=== PATIENT | female | born 1960 | race Caucasian/White ===

== ENCOUNTER → 2017-03-29 | Outpatient (CLI) | payer OTHER ==
--- NOTE | ~2017-03-29 | ST ---
Unit #: [id number] #: [id number] Patient: SAMMY COREA [id number] [address] [address] [id number] O MR#: [id number] NAME: SAMMY COREA : 1960 SEX: F STUDY DATE/TIME: 03/29/2017 UNIT: [facility] ROOM: STUDY DESCRIPTION: Stress Nuclear and ECG Attending Physician: Helder Fraser M.D. Referring Physician: Helder Fraser M.D. Primary Care Physician: Roger Ellison M.D. CARDIOLOGY REPORT EXAM Stress nuclear and ECG combined. INDICATIONS Chest pain, inability to breathe, shortness of breath, inability to exercise adequately, hypertension, obesity, former tobacco abuse, asthma for the diagnosis of obstructive coronary artery disease contributing to the chest pain and the dyspnea. SUMMARY Patient received Lexiscan intravenously while at rest as well as technetium 99 Cardiolite, 11.58 and 35.8 mCi at rest and stress, respectively. Appropriate views were obtained. FINDINGS Heart rate increased from 73 to 125 and blood pressure decreased from 189/90 to 168/100. Patient experienced chest pain and shortness of breath after the infusion. There were no ST segment changes either at rest or with stress. Perfusion images demonstrate chest wall and breast attenuation artifacts, slightly more prominent with stress than at rest. Summed stress score is 2. Summed difference score is 1. Planar images demonstrate no significant patient motion either at rest or stress. There is no significant lung uptake, LV or RV enlargement. Breast shadowing is noted. End-diastolic volume is 93 mL, ejection fraction 63%. IMPRESSION 1. Myocardial perfusion scan demonstrates a change in the anteroseptum with stress, which appears to represent tissue attenuation artifact; however, ischemia cannot be entirely ruled out. This would be considered low to medium risk for ischemia. 2. No infarction is present. 3. Normal wall motion with excellent ejection fraction. Dictated by... Urbano Beckman M.D. MIKA/misha Unit #: [id number] #: [id number] Patient: SAMMY COREA TD: 03/30/2017 13:32 JOB #: [id number] CARDIOLOGY REPORT Page 1 of 1 X Urbano Beckman MD CARDIOLOGY REPORT
--- NOTE | ~2017-03-29 | TH ---
Unit #: [id number] #: [id number] Patient: SAMMY COREA [id number] [address] [address] [id number] O MR#: [id number] NAME: SAMMY COREA : 1960 SEX: F STUDY DATE/TIME: 03/29/2017 UNIT: [facility] ROOM: STUDY DESCRIPTION: Stress nuclear Attending Physician: Helder Fraser M.D. Referring Physician: Helder Fraser M.D. Primary Care Physician: Roger Ellison M.D. CARDIOLOGY REPORT EXAM Stress nuclear and ECG combined. INDICATIONS Chest pain, inability to breathe, shortness of breath, inability to exercise adequately, hypertension, obesity, former tobacco abuse, asthma for the diagnosis of obstructive coronary artery disease contributing to the chest pain and the dyspnea. FINDINGS Result text under stress test. Please see this report for result text. Dictated by... Armin Louise/misha TD: 03/30/2017 13:43 JOB #: [id number] CARDIOLOGY REPORT Page 1 of 1 X Urbano Beckman MD CARDIOLOGY REPORT
== END | disposition home or self-care (01) ==
LOC: CNUC 06:58
DX: R06.00 Dyspnea, unspecified (principal)
CPT/HCPCS: 78452; 93017; A9500; C8929; J2785; Q9957